=== PATIENT | male | born 1965 | race Caucasian/White ===

== ENCOUNTER 2019-05-28 07:37 | Day surgery (SDC) | payer OTHER ==
[~2019-05-28] VITALS: Ht 188 cm; Wt 122.0 kg
[~2019-05-28 07:37] MED LIST: ASPIRIN81 MG PO; ATORVASTATIN CA80 MG PO; CARVEDILOL12.5 MG PO; CLOPIDOGREL75 MG PO; GABAPENTIN100 MG PO; ISOSORBIDE MONO60 MG PO; LISINOPRIL10 MG PO
--- NOTE | 2019-05-28 09:09 | NUR ---
05/28/19 0909 Sheets,Annemarie 0902 PT ARRIVED TO PACU ON 3L VIA NC, PT ASLEEP AND SNORING NOTED. RESP EVEN AND UNLABORED. 905 PT WOKE TO TACTILE STIMULI AND IS REORIENTED TO PACU. PT DENIES PAIN. PT BACK TO SLEEP.
--- NOTE | 2019-05-28 16:56 | OR ---
[facility] [address], [place] [address] Signed DATE OF OPERATION: 05/28/2019 SURGEON: Shayy Aguliar MD PREOPERATIVE DIAGNOSES: 1. Screening. 2. Chronic constipation. POSTOPERATIVE DIAGNOSES: 1. Moderate perez diverticulosis. 2. Moderate external hemorrhoid. 3. Tqvzbkq-tn-uskmedbd internal hemorrhoid. PROCEDURE PERFORMED: Colonoscopy without biopsy. ESTIMATED BLOOD LOSS: None. INDICATIONS: Harsh is a 54-year-old gentleman, asked to see me for his initial screening colonoscopy. He said he has no lower GI complaints, however there has been some chronic constipation. He has no family history of colon cancer or polyps. In the office, I gave Deepa pamphlet on colonoscopy. We looked at the nature of the test along with the risks including, but not limited to gas bloating, crampy abdominal pain, bleeding, perforation, requiring surgery, and missed diagnosis. We also discussed the need for IV conscious sedation. He had expressed understanding and wished to proceed. He also explained that because of his chronic constipation, he wanted to use a double bowel prep. He wanted to take one in the morning and again in the evening. He said he took half the prep in the evening. DESCRIPTION OF PROCEDURE: Harsh was taken into our endoscopy suite and placed in the left lateral decubitus position. He was given IV sedation with a total of 7 mg of Versed and 125 mcg of fentanyl. A digital rectal exam was performed and he does have a moderate-sized external hemorrhoid. He had good sphincter tone. He is a large man. I could just reach the bottom of his prostate gland. It is enlarged and the left is certainly more prominent than the right. He talked about nocturia and he should review this with his primary care provider. After this, the adult colonoscope was introduced and advanced all around into the cecum under direct visualization of the camera. We did give some Electronically Signed By: SHAYY AGUILAR MD 05/28/19 1656 PATIENT NAME: HARSH RIBEIRO OPERATIVE REPORT DATE OF : 63 REPORT #: [id number] PHYSICIAN: SHAYY AGUILAR MD PCP: LESLIE BONILLA REPORT IS CONFIDENTIAL AND NOT TO BE RELEASED WITHOUT AUTHORIZATION [facility] [address], [place] [address] Signed extra sedation as we went as he did wake up a little and move about a little. His prep was actually not bad. He had a few areas of liquid particulate stool matter. Most of that, I could irrigate and suction out. Nevertheless, in the future, he might consider taking full double prep. We did take some time to irrigate the cecum and we saw no pathology in that area. We could easily see the appendiceal orifice and the ileocecal valve. The scope was then slowly withdrawn. We took other pictures for photodocumentation. He does have some diverticula in the right colon as well as the sigmoid colon. They were moderate in size, moderate in number, and scattered about. He had no polyps. The rectum was unremarkable. Upon retroflexion of the scope, he did have a minimal to moderate internal hemorrhoid column. After this, the gas was suctioned out and colonoscope removed. Harsh tolerated the procedure quite well. RECOMMENDATIONS: Harsh can return in 10 years for repeat colonoscopy. Shayy Aguilar MD ALB/MODL /[id number] cc: MD Leslie Osorio FNP Copies: SHAYY AGUILAR MD, DANA FNP ~ Electronically Signed By: SHAYY AGUILAR MD 05/28/19 1656 PATIENT NAME: QUINTINHARSH OPERATIVE REPORT DATE OF : 63 REPORT #: [id number] PHYSICIAN: SHAYY AGUILAR MD PCP: LESLIE BONILLA REPORT IS CONFIDENTIAL AND NOT TO BE RELEASED WITHOUT AUTHORIZATION
== END 2019-05-28 09:43 | disposition home or self-care (01) ==
LOC: OPS 07:37 → DS 07:51 → OPS 08:15 → DS 08:15 → OPS 09:43
PROVIDERS: Colon & Rectal Surgery
PROC: 0DJD8ZZ Inspection of Lower Intestinal Tract, Via Natural or Artificial Opening Endoscopic (ICD-10-PCS; principal; 2019-05-28 08:15)
DX: Z12.11 Encounter for screening for malignant neoplasm of colon (principal); K57.30 Diverticulosis of large intestine without perforation or abscess without bleeding; K64.4 Residual hemorrhoidal skin tags; K64.8 Other hemorrhoids; K59.09 Other constipation; N40.1 Benign prostatic hyperplasia with lower urinary tract symptoms; R35.1 Nocturia; I25.10 Atherosclerotic heart disease of native coronary artery without angina pectoris; I25.2 Old myocardial infarction; E78.5 Hyperlipidemia, unspecified; Z95.1 Presence of aortocoronary bypass graft; Z79.82 Long term (current) use of aspirin; Z79.899 Other long term (current) drug therapy; Z79.02 Long term (current) use of antithrombotics/antiplatelets
CPT/HCPCS: 99153; G0500; J2250; J3010; J7120

== ENCOUNTER 2023-05-12 13:08 | Emergency (ER) | payer OTHER ==
[~2023-05-12] VITALS: Ht 238.8 cm; Wt 120.2 kg
--- OUTSIDE RECORDS SUMMARY | ~2023-05-12 | XMS | Continuity of Care Document ---
Demographics + + + | Address | [address] | | | [place] [address] | + + + | Preferred Language | Unknown | + + + | Marital Status | | + + + | Yazidism Affiliation | Unknown | + + + | Race | White | + + + | Ethnic Group | Not or | + + + Author + + + | Author | [facility] | + + + | Organization | [facility] | + + + | Address | [address] | | | [place] [address] | + + + | Phone | | + + + Care Team Providers + + + + | Care K 9 Handler/ Deputy Name | Role | Phone | + + + + Unavailable | Unavailable | + + + + Unavailable | Unavailable | + + + + Allergies and Intolerances + + + + + + | date | description | facility | reaction | severity | + + + + + + | (no date) | No Known | [facility] | (no reaction) | (no severity) | | | Allergies | | | | + + + + + + Encounters No information. Functional Status No information. Immunizations No information. Medications + + + + | date | description | facility | + + + + | 2023-02-24 00:00 | Lidocaine | [facility] | + + + + | 2023-02-24 00:00 | CARVEDILOL | [facility] | + + + + | 2023-02-24 00:00 | ATORVASTATIN CALCIUM | [facility] | + + + + | 2023-02-24 00:00 | CLOPIDOGREL BISULFATE | [facility] | + + + + | 2023-02-24 00:00 | GABAPENTIN | [facility] | + + + + | 2023-02-24 00:00 | LISINOPRIL | [facility] | + + + + | 2023-02-24 00:00 | ASPIRIN | [facility] | + + + + | 2023-02-24 00:00 | ISOSORBIDE MONONITRATE | [facility] | + + + + | 2023-02-24 00:00 | CYCLOBENZAPRINE HCL | [facility] | + + + + Problems + + + + | date | description | facility | + + + + | 2023-02-23 22:54 | PURE HYPERCHOLESTEROLEMIA, | [facility] | | | UNSPECIFIED | | + + + + | 2023-02-23 22:54 | Essential (primary) | [facility] | | | hypertension | | + + + + | 2023-02-23 22:54 | OLD MYOCARDIAL INFARCTION | [facility] | + + + + | 2023-02-23 22:54 | UNSPECIFIED ABDOMINAL PAIN | [facility] | | | | | + + + + | 2023-02-23 22:54 | STRAIN OF MUSCLE, FASCIA | [facility] | | | AND TENDON OF LOWER BACK, | | + + + + | 2023-02-23 22:54 | EXPOSURE TO OTHER | [facility] | | | SPECIFIED FACTORS, INITIAL | | | | ENCOU | | + + + + | 2023-02-23 22:54 | PILEDRIVER CARPENTER (CURRENT) USE OF | [facility] | | | ANTITHROMBOTICS/ANTIPLA | | + + + + | 2023-02-23 22:54 | PILEDRIVER CARPENTER (CURRENT) USE OF | [facility] | | | ASPIRIN | | + + + + | 2023-02-23 22:54 | OTHER PILEDRIVER CARPENTER (CURRENT) | [facility] | | | DRUG THERAPY | | + + + + | 2023-02-23 22:54 | PERSONAL HISTORY OF | [facility] | | | URINARY CALCULI | | + + + + | 2023-02-23 22:54 | PERSONAL HISTORY OF | [facility] | | | NICOTINE DEPENDENCE | | + + + + | 2023-02-24 00:00 | Acute flank pain | [facility] | + + + + | 2023-02-24 00:00 | Strain of muscle, fascia | [facility] | | | and tendon of lower back, | | | | initial encounter | | + + + + Procedures No information. Results/Labs +--------+--------+ +---------+--------+---------+ | test | date | facility | value | unit | notes | +--------+--------+ +---------+--------+---------+ + + | Result panel 1 | + + + + + +-------+ + + | | 2023-02-23 | [facility] | 6.1 | (missing) | (missing) | | (unavailable | [facility]22:07 [facility] | | | | + + + +-------+ + + + + | Result panel 2 | + + + + + +--------+ + + | | 2023-02-23 | [facility] | 4.46 | (missing) | (missing) | | (unavailable | [facility]22:07 [facility] | | | | + + + +--------+ + + + + | Result panel 3 | + + + + + +--------+ + + | | 2023-02-23 | [facility] | 14.4 | (missing) | (missing) | | (unavailable | [facility]22:07 [facility] | | | | + + + +--------+ + + + + | Result panel 4 | + + + + + +--------+ + + | | 2023-02-23 | [facility] | 43.0 | (missing) | (missing) | | (unavailable | 23[facility]22:07 [facility] | | | | + + + +--------+ + + + + | Result panel 5 | + + + + + +--------+ + + | | 2023-02-23 | [facility] | 96.4 | (missing) | (missing) | | (unavailable | ::07 | [facility] | | | | + + + +--------+ + + + + | Result panel 6 | + + + + + +--------+ + + | | 2023-02-23 | [facility] | 32.2 | (missing) | (missing) | | (unavailable | [facility]22:07 [facility] | | | | + + + +--------+ + + + + | Result panel 7 | + + + + + +--------+ + + | | 2023-02-23 | [facility] | 33.5 | (missing) | (missing) | | (unavailable | [facility]22:07 [facility] | | | | + + + +--------+ + + + + | Result panel 8 | + + + + + +--------+ + + | | 2023-02-23 | [facility] | 13.4 | (missing) | (missing) | | (unavailable | [facility]22:07 [facility] | | | | + + + +--------+ + + + + | Result panel 9 | + + + + + +-------+ + + | | 2023-02-23 | [facility] | 171 | (missing) | (missing) | | (unavailable | ::07 | [facility] | | | | + + + +-------+ + + + + | Result panel 10 | + + + + + +--------+ + + | | 2023-02-23 | [facility] | 64.1 | (missing) | (missing) | | (unavailable | ::07 | [facility] | | | | + + + +--------+ + + + + | Result panel 11 | + + + + + +--------+ + + | | 2023-02-23 | [facility] | 24.4 | (missing) | (missing) | | (unavailable | [facility]22:07 [facility] | | | | + + + +--------+ + + + + | Result panel 12 | + + + + + +-------+ + + | | 2023-02-23 | [facility] | 9.6 | (missing) | (missing) | | (unavailable | [facility]22:07 [facility] | | | | + + + +-------+ + + + + | Result panel 13 | + + + + + +-------+ + + | | 2023-02-23 | [facility] | 1.1 | (missing) | (missing) | | (unavailable | [facility]22:07 [facility] | | | | + + + +-------+ + + + + | Result panel 14 | + + + + + +-------+ + + | | 2023-02-23 | [facility] | 0.8 | (missing) | (missing) | | (unavailable | [facility]22:07 [facility] | | | | + + + +-------+ + + + + | Result panel 15 | + + + + + +-------+---------+ + | | 2023-02-23 | [facility] | 131 | mg/dL | (missing) | | (unavailable | 23:22:07 [facility] | | | | + + + +-------+---------+ + + + | Result panel 16 | + + + + + +------+---------+ + | | 2023-02-23 | [facility] | 28 | mg/dL | (missing) | | (unavailable | 23:22:07 [facility] | | | | + + + +------+---------+ + + + | Result panel 17 | + + + + + +--------+---------+ + | | 2023-02-23 | [facility] | 1.26 | mg/dL | (missing) | | (unavailable | [facility]22:07 [facility] | | | | + + + +--------+---------+ + + + | Result panel 18 | + + + + + +------+ + + | | 2023-02-23 | [facility] | 66 | (missing) | (missing) | | (unavailable | 23[facility]22:07 [facility] | | | | + + + +------+ + + + + | Result panel 19 | + + + + + +---------+ + + | | 2023-02-23 | [facility] | 22.22 | (missing) | (missing) | | (unavailable | [facility]22:07 [facility] | | | | + + + +---------+ + + + + | Result panel 20 | + + + + + +-------+ + + | | 2023-02-23 | [facility] | 140 | (missing) | (missing) | | (unavailable | 23[facility]22:07 [facility] | | | | + + + +-------+ + + + + | Result panel 21 | + + + + + +-------+ + + | | 2023-02-23 | [facility] | 4.1 | (missing) | (missing) | | (unavailable | [facility]22:07 [facility] | | | | + + + +-------+ + + + + | Result panel 22 | + + + + + +-------+ + + | | 2023-02-23 | [facility] | 105 | (missing) | (missing) | | (unavailable | 23[facility]22:07 [facility] | | | | + + + +-------+ + + + + | Result panel 23 | + + + + + +------+ + + | | 2023-02-23 | [facility] | 29 | (missing) | (missing) | | (unavailable | 23:22:07 [facility] | | | | + + + +------+ + + + + | Result panel 24 | + + + + + +--------+ + + | | 2023-02-23 | [facility] | 10.1 | (missing) | (missing) | | (unavailable | [facility]:22:07 [facility] | | | | + + + +--------+ + + + + | Result panel 25 | + + + + + +-------+---------+ + | | 2023-02-23 | [facility] | 9.0 | mg/dL | (missing) | | (unavailable | [facility]:22:07 [facility] | | | | + + + +-------+---------+ + + + | Result panel 26 | + + + + + +-------+ + + | | 2023-02-23 | [facility] | 7.6 | (missing) | (missing) | | (unavailable | [facility]22:07 [facility] | | | | + + + +-------+ + + + + | Result panel 27 | + + + + + +-------+ + + | | 2023-02-23 | [facility] | 3.8 | (missing) | (missing) | | (unavailable | [facility]22:07 [facility] | | | | + + + +-------+ + + + + | Result panel 28 | + + + + + +-------+ + + | | 2023-02-23 | [facility] | 3.8 | (missing) | (missing) | | (unavailable | 23[facility]22:07 [facility] | | | | + + + +-------+ + + + + | Result panel 29 | + + + + + +--------+ + + | | 2023-02-23 | [facility] | 1.00 | (missing) | (missing) | | (unavailable | 23[facility]22:07 [facility] | | | | + + + +--------+ + + + + | Result panel 30 | + + + + + +-------+ + + | | 2023-02-23 | [facility] | 0.2 | (missing) | (missing) | | (unavailable | 23:22:07 [facility] | | | | + + + +-------+ + + + + | Result panel 31 | + + + + + +------+ + + | | 2023-02-23 | [facility] | 16 | (missing) | (missing) | | (unavailable | ::07 | [facility] | | | | + + + +------+ + + + + | Result panel 32 | + + + + + +------+ + + | | 2023-02-23 | [facility] | 43 | (missing) | (missing) | | (unavailable | 23:22:07 [facility] | | | | + + + +------+ + + + + | Result panel 33 | + + + + + +------+ + + | | 2023-02-23 | [facility] | 84 | (missing) | (missing) | | (unavailable | 23:22:07 [facility] | | | | + + + +------+ + + + + | Result panel 34 | + + + + + +-------+ + + | | 2023-02-23 | [facility] | 131 | (missing) | (missing) | | (unavailable | :22:07 [facility] | | | | + + + +-------+ + + + + | Result panel 35 | + + + + + + + + + | | 2023-02-24 | [facility] | YELLOW | (missing) | (missing) | | (unavailable | 01:03:07 [facility] | | | | + + + + + + + + + | Result panel 36 | + + + + + +-------+ + + | | 2023-02-24 | [facility] | 1.0 | (missing) | (missing) | | (unavailable | 01:03:07 [facility] | | | | + + + +-------+ + + + + | Result panel 37 | + + + + + + + + + | | 2023-02-24 | [facility] | NEGATIVE | (missing) | (missing) | | (unavailable | 01:03:07 [facility] | | | | + + + + + + + + + | Result panel 38 | + + + + + + + + + | | 2023-02-24 | [facility] | NEGATIVE | (missing) | (missing) | | (unavailable | 01:: | [facility] | | | | + + + + + + + + + | Result panel 39 | + + + + + +---------+ + + | | 2023-02-24 | [facility] | CLEAR | (missing) | (missing) | | (unavailable | 01:07 [facility] | | | | + + + +---------+ + + + + | Result panel 40 | + + + + + + + + + | | 2023-02-24 | [facility] | NEGATIVE | (missing) | (missing) | | (unavailable | | [facility] | | | | + + + + + + + + + | Result panel 41 | + + + + + + + + + | | 2023-02-24 | [facility] | NEGATIVE | (missing) | (missing) | | (unavailable | :: | [facility] | | | | + + + + + + + + + | Result panel 42 | + + + + + + + + + | | 2023-02-24 | [facility] | NEGATIVE | (missing) | (missing) | | (unavailable | 01:03:07 [facility] | | | | + + + + + + + + + | Result panel 43 | + + + + + +---------+ + + | | 2023-02-24 | [facility] | 1.025 | (missing) | (missing) | | (unavailable | 01::07 [facility] | | | | + + + +---------+ + + + + | Result panel 44 | + + + + + + + + + | | 2023-02-24 | [facility] | NEGATIVE | (missing) | (missing) | | (unavailable | 01:03:07 [facility] | | | | + + + + + + + + + | Result panel 45 | + + + + + +-------+ + + | | 2023-02-24 | [facility] | 5.5 | (missing) | (missing) | | (unavailable | 01:03:07 [facility] | | | | + + + +-------+ + + + + | Result panel 46 | + + + + + + + + + | | 2023-02-24 | [facility] | NEGATIVE | (missing) | (missing) | | (unavailable | ::07 | [facility] | | | | + + + + + + + Social History No information. Vital Signs + + + +---------+ | date | measurement | value | units | + + + +---------+ | 2023-02-23 00:00 | BMI | 21.1 | kg/m2 | + + + +---------+ | 2023-02-23 00:00 | height_metric | 238.76 | cm | + + + +---------+ | 2023-02-23 00:00 | height_standard | 94 | in | + + + +---------+ | 2023-02-23 00:00 | weight_metric | 120.2 | kg | + + + +---------+ | 2023-02-23 00:00 | weight_standard | 265 | lb | + + + +---------+ | 2023-02-24 00:00 | BP_diastolic | 94 | mmHg | + + + +---------+ | 2023-02-24 00:00 | BP_systolic | 159 | mmHg | + + + +---------+ | 2023-02-24 00:00 | heart_rate | 78 | /min | + + + +---------+ | 2023-02-24 00:00 | o2_saturation | 96 | % | + + + +---------+ | 2023-02-24 00:00 | respiration_rate | 18 | /min | + + + +---------+ | 2023-02-24 00:00 | temperature_metric | 37.06 | C | | | | | | + + + +---------+ | 2023-02-24 00:00 | | 98.7 | F | | | temperature_standar | | | | | d | | | + + + +---------+"
--- OUTSIDE RECORDS SUMMARY | ~2023-05-12 | XMS | Continuity of Care Document ---
Demographics + + + | Address | [address] | | | [place] [address] | + + + | Preferred Language | Unknown | + + + | Marital Status | | + + + | Quaker Affiliation | Unknown | + + + | Race | White | + + + | Ethnic Group | Not or | + + + Author + + + | Author | [facility] | + + + | Organization | [facility] | + + + | Address | [address] | | | [place] [address] | + + + | Phone | | + + + Care Team Providers + + + + | Care Chief Design Engineer Name | Role | Phone | + [...] + | 2023-02-24 00:00 | Lidocaine | [facility] | + + + + | 2023-02-24 00:00 | CARVEDILOL | [facility] | + + + + | 2023-02-24 00:00 | ATORVASTATIN CALCIUM | [facility] | + + + + | 2023-02-24 00:00 | CLOPIDOGREL BISULFATE | [facility] | + + + + | 2023-02-24 00:00 | GABAPENTIN | [facility] | + + + + | 2023-02-24 00:00 | LISINOPRIL | [facility] | + + + + | 2023-02-24 00:00 | ASPIRIN | [facility] | + + + + | 2023-02-24 00:00 | ISOSORBIDE MONONITRATE | [facility] | + + + + | 2023-02-24 00:00 | CYCLOBENZAPRINE HCL | [facility] | + + + + Problems [...] + + + | 2023-02-23 22:54 | MARINE OPERATIONS COORDINATOR (CURRENT) USE OF | [facility] | | | ANTITHROMBOTICS/ANTIPLA | | + + + + | 2023-02-23 22:54 | MARINE OPERATIONS COORDINATOR (CURRENT) USE OF | [facility] | | | ASPIRIN | | + + + + | 2023-02-23 22:54 | OTHER MARINE OPERATIONS COORDINATOR (CURRENT) | [facility] | | | DRUG THERAPY | | + + + + | 2023-02-23 22:54 | PERSONAL HISTORY OF | [facility] | | | URINARY CALCULI | | + + + + | 2023-02-23 22:54 | PERSONAL HISTORY OF | [facility] | | | NICOTINE DEPENDENCE | | + + + + | 2023-02-24 00:00 | Acute flank pain | [facility] | + + + + | 2023-02-24 00:00 | Strain of muscle, fascia | [facility] | | | and tendon of [...]
[~2023-05-12 13:08] MED LIST changes: +CYCLOBENZAPRINE10 MG PO; +LIDODERM1 EACH TOP
[2023-05-12 13:49] LABS: BASOPHILS 0.7 % (0-2); EOSINOPHILS 0.8 % (0-6); HEMATOCRIT 42.2 % (35.0-50.0); HEMOGLOBIN 14.6 g/dL (12.0-18.0); LYMPHOCYTES 27.9 % (24-44); MCH 32.7 (27-36); MCHC 34.7 g/dl (30-36); MCV 94.2 fl (81-99); MONOCYTES 17.8 % (0-12); NEUTROPHILS 52.8 % (39-80); PLATELET COUNT 117 K/uL (140-440); RBC 4.47 M/ul (4.3-5.7); RDW 13.6 (10.5-15.0)
[2023-05-12 14:05] LABS: ALBUMIN 3.4 g/dL (3.4-5.0); ALBUMIN/GLOBULIN RATIO 0.94 (1.1-2.4); ANION GAP 11.1 (7-21); BILIRUBIN, TOTAL 0.4 ng/dL (0.2-1.0); BUN/CREATININE RATIO 18.44 (6.0-28.6); CALCIUM 8.6 mg/dL (8.5-10.1); CREATININE, SERUM 1.03 mg/dL (0.70-1.30); MAGNESIUM 1.8 mg/dL (1.8-2.4); POTASSIUM 4.1 mmol/L (3.5-5.1)
[2023-05-12 14:22] LABS: INFLUENZA B NAA NEGATIVE (NEGATIVE); RESPIRATORY SYNCYTIAL VIR NAA NEGATIVE (NEGATIVE)
[2023-05-12] MEDS ORDERED: PAXLOVID 300-11 EACH PO (14:43)
[2023-05-12 15:05] VITALS: BP 115/74
--- NOTE | 2023-05-13 17:09 | EKG ---
[facility] [address] [place], [place] [address] Signed Normal sinus rhythm Low voltage QRS Cannot rule out Anteroseptal infarct , age undetermined Abnormal ECG No previous ECGs available Confirmed by MIMI WILBURN MD ([id number]) on 05/13/2023 5:09:39 PM Electronically Signed By: MIMI WILBURN 05/13/23 1709 PATIENT NAME: HARSH RIBEIRO PRADEEP Electrocardiogram DATE OF : 63 PHYSICIAN: MIMI WILBURN REPORT #: [id number] REPORT IS CONFIDENTIAL AND NOT TO BE RELEASED WITHOUT AUTHORIZATION
== END 2023-05-12 15:02 | disposition home or self-care (01) ==
LOC: ED 13:08
PROVIDERS: Emergency Medicine
DX: U07.1 COVID-19 (principal); I25.10 Atherosclerotic heart disease of native coronary artery without angina pectoris; I10 Essential (primary) hypertension; Z95.5 Presence of coronary angioplasty implant and graft; Z79.01 Long term (current) use of anticoagulants; Z79.82 Long term (current) use of aspirin; Z79.899 Other long term (current) drug therapy; Z87.891 Personal history of nicotine dependence
CPT/HCPCS: 36415; 71045; 80053; 83735; 84484; 85025; 87502; 99284-25; C9803; U0002

== ENCOUNTER 2025-07-16 18:39 | Emergency (ER) | payer OTHER, BC ==
[~2025-07-16] VITALS: Ht 188 cm; Wt 118.0 kg
[~2025-07-16 18:39] MED LIST changes: +PAXLOVID 300-11 EACH PO
[2025-07-16] MEDS ORDERED: JARDIANCE25 MG PO (21:25)
[2025-07-16] MEDS ORDERED: EZETIMIBE10 MG PO (21:26)
[2025-07-16] MEDS ORDERED: VITAMIN D350 MCG PO (21:27)
[2025-07-16] MEDS ORDERED: TAMSULOSIN HCL0.4 MG PO (21:28)
[2025-07-16] MEDS ORDERED: ACETAMINOPHEN 500 MG TAB PO ONE (23:15)
[2025-07-16] MEDS ORDERED: CYCLOBENZAPRINE HCL 10 MG TAB PO ONE (23:15)
[2025-07-16 23:26] LABS: BASOPHILS 0.9 % (0.2-1.2); EOSINOPHILS 1.2 % (0.8-7.0); LYMPHOCYTES 15.9 % (21.8-53.1); MCH 32.8 PG (25.7-32.2); MCHC 33.0 g/dL (32.3-36.5); MCV 99.3 fL (79.0-92.2); MONOCYTES 10.6 % (5.3-12.2); NEUTROPHILS 70.8 % (34.0-67.9); RBC 4.03 M/uL (4.63-6.08)
[2025-07-16 23:43] LABS: ALT (SGPT) 28.0 U/L (14-59); AST (SGOT) 14.0 U/L (15-37); GLOMERULAR FILTRATION RATE,EST 99.0 mL/min (>60); PROTEIN, TOTAL 6.4 g/dL (6.4-8.2); UREA NITROGEN 26.0 mg/dL (7-18)
[2025-07-17 00:01] LABS: BLOOD/HGB, URINE NEGATIVE (Negative); KETONE, URINE NEGATIVE (Negative); LEUK ESTERASE, URINE NEGATIVE (negative); NITRITE, URINE NEGATIVE (negative)
[2025-07-17] MEDS ORDERED: LIDODERM1 EACH TOP (00:39)
[2025-07-17] MEDS ORDERED: CYCLOBENZAPRINE10 MG PO (00:40)
[2025-07-17] MEDS ORDERED: LIDOCAINE HCL 4% 1 EACH PATCH TD ONE (00:45)
[2025-07-17] MEDS ORDERED: CYCLOBENZAPRINE HCL 10 MG HOME.PACK PO ONE (00:45)
[2025-07-17 00:50] VITALS: BP 143/87
== END 2025-07-17 00:51 | disposition home or self-care (01) ==
LOC: ED 18:39
PROVIDERS: Internal Medicine
DX: S33.5XXA Sprain of ligaments of lumbar spine, initial encounter (principal); Z87.891 Personal history of nicotine dependence; I10 Essential (primary) hypertension; X58.XXXA Exposure to other specified factors, initial encounter
CPT/HCPCS: 36415; 80053; 81003; 84484; 85025; 85379; 99283; A9270